=== PATIENT | male | born 1960 | race African-American/Black ===

== ENCOUNTER 2019-05-09 02:17 | Emergency (ER) | payer MEDICARE, MEDICAID ==
[~2019-05-09] VITALS: Ht 190.5 cm; Wt 90.0 kg
[2019-05-09 03:46] VITALS: BP 104/75
== END 2019-05-09 03:47 | disposition home or self-care (01) ==
LOC: ER 02:17
DX: L02.512 Cutaneous abscess of left hand (principal); F12.10 Cannabis abuse, uncomplicated; F17.200 Nicotine dependence, unspecified, uncomplicated; Z98.890 Other specified postprocedural states
CPT/HCPCS: 99283

== ENCOUNTER 2020-04-16 01:38 | Emergency (ER) | payer MEDICARE, MEDICAID ==
[~2020-04-16] VITALS: Ht 188 cm; Wt 109.0 kg
[2020-04-16 01:00] LABS: HEMATOCRIT. 44.1 % (42.0-52.0); MEAN CORPUSCULAR HEMOGLOBIN 32.4 pg (28.0-32.0); MEAN CORPUSCULAR VOLUME 95.5 fL (80.0-94.0); NEUTROPHILS % 56.4 % (40.0-76.0); RED BLOOD CELL COUNT 4.62 mill/uL (4.7-6.1)
[2020-04-16 01:11] LABS: PROTHROMBIN TIME 10.9 sec (9.6-11.0)
[2020-04-16] MEDS ORDERED: MORPHINE SULFATE 4 MG/ML CPJ (NOT FOR IM USE) IV STA (01:42)
[2020-04-16] MEDS ORDERED: ONDANSETRON HCL 4MG/2ML INJ IV STA (01:42)
[2020-04-16] MEDS ORDERED: LIDOCAINE 1%/EPI 1:100,000 10 ML VIAL IJ ONE (01:45)
[2020-04-16] MEDS ORDERED: TETANUS, DIPHTHERIA, PERTUSSIS VAC/PF 0.5ML (>7YR OLD) IM ONE (01:45)
[2020-04-16] MEDS ORDERED: SODIUM CHLORIDE 0.9% 1,000 ML IV ONE (01:45)
[2020-04-16] MEDS ORDERED: CEFAZOLIN 1000MG PREMIX 50 ML IV ONE (01:45)
[2020-04-16 02:03] LABS: CHLORIDE 108 mEq/L (98-107)
[2020-04-16] MEDS ORDERED: BACITRACIN ZINC OINT UDPKT TOP ONE (02:15)
[2020-04-16 02:40] VITALS: BP 129/82
== END 2020-04-16 03:28 | disposition home or self-care (01) ==
LOC: ER 01:45
DX: S81.811A Laceration without foreign body, right lower leg, initial encounter (principal); W34.09XA Accidental discharge from other specified firearms, initial encounter; Y93.89 Activity, other specified; Y92.89 Other specified places as the place of occurrence of the external cause; Y99.8 Other external cause status; F12.10 Cannabis abuse, uncomplicated
CPT/HCPCS: 12004; 36415; 73590; 80053; 85025; 85610; 93005; 96365; 96375; 99285; J0690; J2270; J2405; J3490; J7030; 90715

== ENCOUNTER 2022-04-09 18:13 | Emergency (ER) | payer MEDICAID, MEDICARE ==
[~2022-04-09] VITALS: Ht 190.5 cm; Wt 90.9 kg
[2022-04-09 19:09] VITALS: BP 125/81
[2022-04-09] MEDS ORDERED: IBUPROFEN 600MG TABLET PO ONE (21:30)
== END 2022-04-09 23:54 | disposition left against medical advice (07) ==
LOC: ER 18:13
DX: J02.9 Acute pharyngitis, unspecified (principal); F12.10 Cannabis abuse, uncomplicated; Z20.822 Contact with and (suspected) exposure to COVID-19; Z53.21 Procedure and treatment not carried out due to patient leaving prior to being seen by health care provider
CPT/HCPCS: 87426; 87804; 99283; C9803

== ENCOUNTER 2024-09-10 13:10 | Emergency (ER) | payer BC, MEDICARE ==
[~2024-09-10] VITALS: Ht 190.5 cm; Wt 95.3 kg
[2024-09-10 13:12] VITALS: BP 151/84; TEMP 37.1; O2SAT 98
[2024-09-10 13:15] VITALS: PULSE 93; RESP 18; O2SAT 98
[2024-09-10 16:02] LABS: BASOPHILS % 0.5 % (0.0-2.0); EOSINOPHILS % 1.8 % (0.0-5.0); HEMATOCRIT. 43.6 % (42.0-52.0); HEMOGLOBIN. 14.5 g/dL (14.0-18.0); LYMPHOCYTES % 18.5 % (20.0-50.0); MEAN CORPUSCULAR HEMOGLOBIN 32.1 pg (28.0-32.0); MEAN CORPUSCULAR HGB CONC 33.3 g/dL (31.0-37.0); MEAN CORPUSCULAR VOLUME 96.4 fL (80.0-94.0); MEAN PLATELET VOLUME 6.8 fl (7.4-10.4); MONOCYTES % 11.2 % (2.0-8.0); PLATELET 205 x1000/uL (130-400); RED BLOOD CELL COUNT 4.52 mill/uL (4.7-6.1); RED CELL DISTRIBUTION WIDTH 12.4 % (11.6-14.6); WHITE BLOOD COUNT 8.2 x1000/uL (4.5-11.0)
[2024-09-10 16:09] LABS: CHLORIDE 104 mEq/L (98-107); POTASSIUM 4.1 mEq/L (3.5-5.1); SODIUM 139 mEq/L (136-145)
[2024-09-10 16:10] LABS: CARBON DIOXIDE 28 mEq/L (21-32)
[2024-09-10 16:11] LABS: CALCIUM 8.8 mg/dL (8.7-10.4)
[2024-09-10 16:15] LABS: CREATININE 0.9 mg/dL (0.6-1.3); GLUCOSE 118 mg/dL (70-105)
[2024-09-10 16:16] LABS: UREA NITROGEN BLOOD 13 mg/dL (9-23)
[2024-09-10] MEDS ORDERED: ACET-2708 MT (17:27)
[2024-09-10] MEDS: KETOROLAC 30MG/ML VIAL IM STA (17:27)
== END 2024-09-10 17:57 | disposition left against medical advice (07) ==
LOC: ER 13:10
DX: M79.671 Pain in right foot (principal); F12.10 Cannabis abuse, uncomplicated
CPT/HCPCS: 99285; 93971; 80048; 85025; 85379; 36415; 93922; 96372; J1885

== ENCOUNTER 2025-02-13 19:07 | Emergency (ER) | payer BC, MEDICAID ==
[~2025-02-13] VITALS: Ht 190.5 cm; Wt 86.0 kg
[~2025-02-13 19:07] MED LIST: ACET-2708 MT
[2025-02-13 19:09] VITALS: BP 118/76; PULSE 80; RESP 18; TEMP 37; O2SAT 98
[2025-02-13] MEDS ORDERED: MORPHINE SULFATE 4 MG/ML INJ (FOR IV/IM USE) IV ONE (20:15)
[2025-02-13] MEDS ORDERED: SODIUM CHLORIDE 0.9% 1,000 ML IV ONE (20:15)
[2025-02-13] MEDS ORDERED: ONDANSETRON HCL 4MG/2ML INJ IV ONE (20:15)
[2025-02-13 20:35] LABS: BASOPHILS % 0.8 % (0.0-2.0); EOSINOPHILS % 2.2 % (0.0-5.0); HEMATOCRIT. 38.5 % (42.0-52.0); HEMOGLOBIN. 13.2 g/dL (14.0-18.0); LYMPHOCYTES % 29.3 % (20.0-50.0); MEAN PLATELET VOLUME 7.0 fl (7.4-10.4); MONOCYTES % 13.6 % (2.0-8.0); NEUTROPHILS % 54.1 % (40.0-76.0); PLATELET 210 x1000/uL (130-400); RED BLOOD CELL COUNT 4.08 mill/uL (4.7-6.1); RED CELL DISTRIBUTION WIDTH 13.2 % (11.6-14.6)
[2025-02-13 20:48] LABS: CREATININE 1.0 mg/dL (0.6-1.3); UREA NITROGEN BLOOD 18 mg/dL (9-23)
[2025-02-13 20:49] LABS: INR 1.1
[2025-02-13 20:50] LABS: ASPARTATE AMINOTRANSFERASE 19 IU/L (<34); BILIRUBIN DIRECT 0.1 mg/dL (<=3.0)
[2025-02-13 20:51] LABS: BILIRUBIN TOTAL 0.3 mg/dL (0.1-1.0); PROTEIN TOTAL 6.6 g/dL (6.0-8.3)
[2025-02-15] MEDS ORDERED: TAMSULOSIN (02:51)
== END 2025-02-13 23:32 | disposition left against medical advice (07) ==
LOC: ER 19:07 → CMPBEDREQ 02-14 12:46
DX: J93.83 Other pneumothorax (principal); R10.9 Unspecified abdominal pain; F12.90 Cannabis use, unspecified, uncomplicated; F10.90 Alcohol use, unspecified, uncomplicated; Y90.9 Presence of alcohol in blood, level not specified
CPT/HCPCS: 99285; 74176; 71045; 80076; 80048; 83690; 85025; 85610; 85730; 86850; 86900; 86901; 36415; 93005; J7030